=== PATIENT | female | born 1975 | race African-American/Black ===

== ENCOUNTER 2017-08-07 09:04 | Emergency (ER) | payer OTHER ==
[2017-08-07] MEDS ORDERED: Ketorolac Tromethamine 30 MG/ML VIAL ONE (09:32)
[2017-08-07 09:40] LABS: #Basophils 0.1 thou/uL (0.0-0.2); #Eosinphils 0.1 thou/uL (0.0-0.7); #Lymphocytes 1.6 thou/uL (1.20-3.40); #Monocytes 0.5 thou/uL (0.11-0.59); #Neutrophils 3.3 thou/uL (1.40-6.50); %Basophils 1.1 % (0.0-1.0); %Lymphocytes 29.3 % (21.0-51.0); %Monocytes 8.4 % (0.0-10.0); %Neutrophils 59.2 % (42.0-75.0); Hemoglobin 11.9 g/dL (12.0-16.0); Mean Corpuscular HGB CONC 32.2 g/dL (32.0-36.0); Mean Corpuscular Hemoglobin 30.3 pg (27.0-31.0); Mean Corpuscular Volume 93.9 fl (81.0-99.0); Mean Platelet Volume 6.7 fL (7.4-10.4); Platelet Count 288 thou/uL (130-400); RBC Distribution Width 12.4 % (11.5-14.5); Red Blood Cell (RBC) Count 3.94 mill/uL (4.20-5.40); White Blood Cell (WBC) Count 5.5 thou/uL (4.8-10.8)
[2017-08-07 10:03] LABS: ALT (SGPT) 12 U/L (8-55); AST (SGOT) 15 U/L (5-34); Alkaline Phosphatase 68 U/L (40-150); Anion Gap 12 mmol/L (10-20); BUN (Urea Nitrogen) 18 mg/dL (7.0-18.7); CRP (Inflammatory) Less than 0.50 mg/dL (= or < 0.5); Calc. Creatinine Clearance 0 mL/min (70-130); Calcium 9.3 mg/dL (7.8-10.44); Carbon Dioxide 24 mmol/L (22-29); Chloride 107 mmol/L (98-107); Estimated GFR-MDRD 76; Globulin 3.4 g/dL (2.4-3.5); Glucose 85 mg/dL (70-105); Potassium 3.5 mmol/L (3.5-5.1); Protein, Total 7.4 g/dL (6.0-8.3); Sodium 139 mmol/L (136-145); Uric Acid 4.2 mg/dL (2.6-6.0)
--- NOTE | 2017-08-07 10:32 | RAD ---
RIGHT HAND 3 VIEWS: HISTORY: Pain and swelling in the right hand. FINDINGS/IMPRESSION: No fracture, dislocation, or bony destruction is seen. No radiopaque foreign body is identified. POS: [facility]
--- NOTE | 2017-08-07 10:56 | ULT ---
ULTRASOUND WITH DOPPLER DUPLEX VENOUS RIGHT UPPER EXTREMITY: HISTORY: A 42-year-old female with right upper extremity pain and swelling. TECHNIQUE: Wilson scale, color flow, and Doppler of the major veins of the right upper extremity. Compression hawa lied to all veins, except the subclavian. FINDINGS: There is blood flow, with no evidence of DVT, in the right internal jugular, subclavian, axillary, br achial, radial, ulnar, cephalic, or basilic veins. IMPRESSION: Negative. No deep vein thrombosis in the right upper extremity. POS: [facility]
== END 2017-08-07 10:52 | disposition home or self-care (01) ==
LOC: ERS 09:04
DX: M77.9 Enthesopathy, unspecified (principal); F32.9 Major depressive disorder, single episode, unspecified
CPT/HCPCS: 36415; 80053; 84550; 85025; 85379; 86140; 96372; J1885

== ENCOUNTER 2017-10-05 18:10 | Emergency (ER) | payer OTHER ==
[2017-10-05 18:43] LABS: Bilirubin Small (Negative); Blood, Urine Negative (Negative); Clarity CLEAR (Clear); Glucose, Urine (Dipstick) Negative (Negative); Leukocyte Negative (Negative); Nitrite Negative (Negative); Protein, Urine (Dipstick) 30 mg/dL (Neg-Trace); Specific Gravity, Urine 1.028 (1.002-1.036); pH, Urine 6.5 (5.0-9.0)
[2017-10-05 18:45] LABS: Bacteria/HPF Rare-Few HPF (None Seen); Hyaline Casts/LPF 4-6 HYALINE CAST LPF (0-3 Hyaline); Pathc Cast-AUWi Flag 0.94 (0-2.49); RBC/HPF 0-3 HPF (0-3); WBC/HPF 0-3 HPF (0-3)
[2017-10-05 18:59] LABS: #Basophils 0.1 thou/uL (0.0-0.2); #Eosinphils 0.1 thou/uL (0.0-0.7); #Lymphocytes 1.9 thou/uL (1.20-3.40); #Monocytes 0.6 thou/uL (0.11-0.59); #Neutrophils 3.7 thou/uL (1.40-6.50); %Basophils 1.2 % (0.0-1.0); %Eosinophils 1.6 % (0.0-10.0); %Lymphocytes 29.9 % (21.0-51.0); %Monocytes 9.1 % (0.0-10.0); %Neutrophils 58.2 % (42.0-75.0); Hemoglobin 12.3 g/dL (12.0-16.0); Mean Corpuscular HGB CONC 33.2 g/dL (32.0-36.0); Mean Corpuscular Hemoglobin 30.5 pg (27.0-31.0); Mean Corpuscular Volume 91.8 fl (81.0-99.0); Mean Platelet Volume 6.8 fL (7.4-10.4); Platelet Count 274 thou/uL (130-400); RBC Distribution Width 12.3 % (11.5-14.5); Red Blood Cell (RBC) Count 4.04 mill/uL (4.20-5.40); White Blood Cell (WBC) Count 6.4 thou/uL (4.8-10.8)
[2017-10-05 19:20] LABS: ALT (SGPT) 17 U/L (8-55); AST (SGOT) 23 U/L (5-34); Albumin 4.1 g/dL (3.5-5.0); Alkaline Phosphatase 69 U/L (40-150); Anion Gap 12 mmol/L (10-20); BUN (Urea Nitrogen) 11 mg/dL (7.0-18.7); Bilirubin, Total 0.7 mg/dL (0.2-1.2); Calc. Creatinine Clearance 0 mL/min (70-130); Carbon Dioxide 26 mmol/L (22-29); Chloride 104 mmol/L (98-107); Estimated GFR-MDRD 76; Globulin 3.6 g/dL (2.4-3.5); Glucose 81 mg/dL (70-105); Potassium 3.7 mmol/L (3.5-5.1); Protein, Total 7.7 g/dL (6.0-8.3); Sodium 138 mmol/L (136-145)
--- NOTE | 2017-10-05 21:43 | RAD ---
ABDOMEN ONE VIEW 10/05/17 HISTORY: Abdomen pain. FINDINGS: Large amount of gas is apparent throughout the colon. Small bowel gas pattern is nonspecific. Phlebol iths project over the pelvis. There are degenerative changes of the hips. IMPRESSION: Nonspecific bowel gas pattern. POS: [facility]
--- NOTE | 2017-10-05 22:08 | ULT ---
PELVIC SONOGRAM TRANSABDOMINAL IMAGING WITH DUPLEX EVALUATION 10/05/17 HISTORY: Pelvic pain. FINDINGS: The urinary bladder is unremarkable. The uterus is surgically absent. Right ovary is 3.0 cm and left is 3.9 cm. Each has a normal appearance with follicles and good color and spectral doppler flow. No f ree fluid is apparent. IMPRESSION: Status post hysterectomy. No significant abnormalities are demonstrated. POS: [facility]
== END 2017-10-05 23:28 | disposition home or self-care (01) ==
LOC: ERS 18:10
DX: K59.00 Constipation, unspecified (principal); F32.9 Major depressive disorder, single episode, unspecified
CPT/HCPCS: 36415; 74018; 76856; 80053; 81003; 81015; 85025; 93976

== ENCOUNTER 2018-01-01 13:06 | Emergency (ER) | payer OTHER ==
[2018-01-01] MEDS ORDERED: Ketorolac Tromethamine 30 MG/ML VIAL ONE (13:19)
[2018-01-01 13:53] LABS: #Basophils 0.1 thou/uL (0.0-0.2); #Eosinphils 0.1 thou/uL (0.0-0.7); #Lymphocytes 1.7 thou/uL (1.20-3.40); #Monocytes 0.5 thou/uL (0.11-0.59); %Basophils 1.1 % (0.0-1.0); %Lymphocytes 32.5 % (21.0-51.0); %Monocytes 9.5 % (0.0-10.0); Hemoglobin 12.1 g/dL (12.0-16.0); Mean Corpuscular HGB CONC 33.5 g/dL (32.0-36.0); Mean Corpuscular Hemoglobin 30.6 pg (27.0-31.0); Mean Corpuscular Volume 91.4 fl (81.0-99.0); Mean Platelet Volume 7.2 fL (7.4-10.4); Platelet Count 300 thou/uL (130-400); RBC Distribution Width 12.6 % (11.5-14.5); Red Blood Cell (RBC) Count 3.96 mill/uL (4.20-5.40); White Blood Cell (WBC) Count 5.4 thou/uL (4.8-10.8)
[2018-01-01 13:56] LABS: BHCG - Serum Negative (NEGATIVE); Pregs Control Background? CLEAR/WHITE (CLR/WHITE); Pregs Control Bar Appear? YES (CONTROL BAR)
[2018-01-01 14:07] LABS: ALT (SGPT) 13 U/L (8-55); AST (SGOT) 15 U/L (5-34); Albumin 3.9 g/dL (3.5-5.0); Alkaline Phosphatase 67 U/L (40-150); Anion Gap 9 mmol/L (10-20); BUN (Urea Nitrogen) 12 mg/dL (7.0-18.7); Bilirubin, Total 0.7 mg/dL (0.2-1.2); Calc. Creatinine Clearance 0 mL/min (70-130); Calcium 8.7 mg/dL (7.8-10.44); Carbon Dioxide 27 mmol/L (22-29); Chloride 107 mmol/L (98-107); Estimated GFR-MDRD 75; Globulin 3.4 g/dL (2.4-3.5); Glucose 80 mg/dL (70-105); Potassium 3.6 mmol/L (3.5-5.1); Protein, Total 7.3 g/dL (6.0-8.3); Sodium 139 mmol/L (136-145)
[2018-01-01 14:09] LABS: CKMB 2.3 ng/mL (0-6.6); Troponin I Less than 0.010 ng/mL (< 0.028)
--- NOTE | 2018-01-01 14:53 | RAD ---
CHEST 1 VIEW: HISTORY: Pain. FINDINGS: Enlarged cardiac silhouette due to technique. Pulmonary vessels and hilum are normal. Costophrenic angles are clear. No consolidation or mass. No pneumothorax or osseous abnormalities. IMPRESSION: No acute cardiopulmonary process. POS: [facility]
== END 2018-01-01 14:30 | disposition home or self-care (01) ==
LOC: ERS 13:06
DX: R07.89 Other chest pain (principal); F32.9 Major depressive disorder, single episode, unspecified
CPT/HCPCS: 71045; 80053; 82553; 84484; 84703; 85025; 85379; 93005; 96374; J1885

== ENCOUNTER 2018-12-28 14:27 | Emergency (ER) | payer OTHER ==
[2018-12-28 14:55] LABS: Bilirubin Negative (Negative); Blood, Urine Negative (Negative); Glucose, Urine (Dipstick) Negative (Negative); Leukocyte Negative (Negative); Nitrite Negative (Negative); Protein, Urine (Dipstick) Negative (Neg-Trace); Specific Gravity, Urine 1.017 (1.002-1.036)
[2018-12-28 14:56] LABS: Pregnancy Test - Urine (BHCG) Negative (Negative); Pregu Control Background? CLEAR/WHITE (CLR/WHITE); Pregu Control Bar Appear? YES (CONTROL BAR); Specific Gravity 1.017 (1.002-1.036)
[2018-12-28 15:01] LABS: Clarity Clear (Clear)
--- NOTE | 2018-12-28 15:13 | RAD ---
TWO VIEWS CHEST: DATE: 12/28/2018. PROVIDED CLINICAL HISTORY: Productive cough. FINDINGS: Comparison 01/01/2018. Cardiac and mediastinal silhouette is within normal limits. Right convexity c urvature of the thoracic spine is noted. No focal consolidation, pleural fluid, or pneumothorax appa rent. IMPRESSION: No evidence for an acute cardiopulmonary process. POS: [facility]
== END 2018-12-28 19:13 | disposition home or self-care (01) ==
LOC: ERS 14:27
DX: J30.2 Other seasonal allergic rhinitis (principal); F32.9 Major depressive disorder, single episode, unspecified; R07.89 Other chest pain; N89.8 Other specified noninflammatory disorders of vagina
CPT/HCPCS: 71046; 81003; 81025

== ENCOUNTER 2020-03-28 09:05 | Emergency (ER) | payer OTHER ==
[2020-03-28 17:05] LABS: SARS-CoV-2 MS2 Positive; SARS-CoV-2 N Gene Negative; SARS-CoV-2 S Gene Negative; SARS-CoV-2 by NAA Not Detected (NotDetected); SARS-CoV-2 orf1ab Negative
== END 2020-03-28 09:26 | disposition home or self-care (01) ==
LOC: ERS 09:05
DX: J02.9 Acute pharyngitis, unspecified (principal); R05 Cough; Z20.828 Contact with and (suspected) exposure to other viral communicable diseases; F32.9 Major depressive disorder, single episode, unspecified
CPT/HCPCS: 87635; 99284; U0003

== ENCOUNTER 2020-06-28 05:47 | Emergency (ER) | payer OTHER, SELFPAY ==
[2020-06-28] MEDS ORDERED: Hydrocodone-Acetamin 15 ML UDCUP ONE (06:13)
== END 2020-06-28 06:20 | disposition home or self-care (01) ==
LOC: ERS 05:47
DX: M27.2 Inflammatory conditions of jaws (principal); F32.9 Major depressive disorder, single episode, unspecified
CPT/HCPCS: 99282